=== PATIENT | male | born 1970 | race Caucasian/White ===

== ENCOUNTER 2018-08-31 02:59 | Emergency (ER) | payer MEDICAID, SELFPAY ==
[2018-08-31 03:00] VITALS: BP 132/89; PULSE 79; RESP 20; TEMP 36.8; O2SAT 95; BMI 34.4
--- NOTE | 2018-08-31 03:56 | ED.VISSUMM ---
- ER Visit Summary Date of Service: 08/31/18 Chief Complaint: Rash History of Present Illness: The patient is a 48 M who presents with a rash. He was out cutting weeds a couple of days ago. He then developed a rash consistent with poison elizabeth on his arms and face. His face has significantly progressed since then. When he woke this morning his eyes were swollen and he was essentially unable to open them. He complains of some burning pain. No fevers chest pain shortness of breath nausea vomiting. He is not diabetic. Physical Examination: Afebrile vitals normal Patient has facial and periorbital edema and erythema it is not hot to the touch Extraocular motion intact without pain Airway patent clear speech no stridor Heart regular rate and rhythm Lungs are clear Patient does have a papular rash on the forearms as well Test Results: Not indicated Emergency Department Course and Treatment: Patient's rash is consistent with Toxicodendron dermatitis. I do not believe there is a secondary cellulitis at this time. However the patient was instructed on specific signs and symptoms to monitor for and understands to return for new or worsening symptoms. He was given intramuscular Kenalog here. Patient and family agreeable to this plan and the patient was discharged. Treatment Plan: [] Disposition: Discharge Impression: Toxicodendron dermatitis This note was generated with [employer] dictation software. It may contain incorrect words, spelling, and punctuation that were not noted in review of the chart prior to signing ED Disposition - Plan for ED Patient: Referrals: Care Physician,No Primary [Primary Care Provider] -
--- NOTE | 2018-08-31 03:58 | ED.DEP ---
ED Disposition - Plan for ED Patient: Instructions: Poison Brittaney Dermatitis Referrals: Care Physician,No Primary [Primary Care Provider] -
[2018-08-31] MEDS: Triamcinolone Acetonide 40 MG/ML Vial IM (04:00)
[2018-08-31 04:26] VITALS: BP 128/80; RESP 16; O2SAT 94
== END 2018-08-31 04:27 | disposition home or self-care (01) ==
LOC: ED 03:56
PROVIDERS: Emergency Provider Emergency Medicine; Family Provider Family Medicine; PCP Family Medicine
DX: L23.7 Allergic contact dermatitis due to plants, except food (principal)
CPT/HCPCS: 96372; 99283